=== PATIENT | female | born 1965 | race Caucasian/White ===

== ENCOUNTER 2019-08-31 09:25 | Outpatient (CLI) | payer OTHER, SELFPAY ==
--- NOTE | ~2019-08-31 | MM_ITS ---
EXAMINATION: MM screening naz BI w mai HISTORY: Screening mammogram TECHNIQUE: Craniocaudal and mediolateral oblique 3-D tomosynthesis images were obtained and synthetic 2-D images were generated. CAD analysis was submitted and interpreted. COMPARISON: 04/08/2011 BREAST PARENCHYMAL COMPOSITION: The breasts are heterogenously dense, which may obscure small masses FINDINGS: There are focal asymmetries in the central aspect of the left breast, not definitely seen o n prior examination. The right breast is stable without evidence for malignancy. IMPRESSION: 1. Focal left breast asymmetries centrally. 2. Additional mammographic views and possible breast ultrasound are recommended. BI-RADS Category 0: Incomplete: Needs additional imaging evaluation. Reviewed, dictated and finalized at location A. IMPRESSION: 1. Focal left breast asymmetries centrally. 2. Additional mammographic views and possible breast ultrasound are recommended . BI-RADS Category 0: Incomplete: Needs additional imaging evaluation.
== END 2019-08-31 09:26 | disposition home or self-care (01) ==
LOC: ANHIMG 09:28
PROVIDERS: PCP Family Medicine; Visit Provider Family Medicine
DX: Z12.31 Encounter for screening mammogram for malignant neoplasm of breast (principal); R92.8 Other abnormal and inconclusive findings on diagnostic imaging of breast
CPT/HCPCS: 77063; 77067

== ENCOUNTER 2019-09-15 11:37 | Outpatient (CLI) | payer OTHER, SELFPAY ==
--- NOTE | ~2019-09-15 | MM_ITS ---
EXAMINATION: MM diagnostic mammo unilat LT HISTORY: TECHNIQUE: Additional full field 3-D ML and spot ML, MLO and cc tomosynthesis images of the left [address] were performed and synthetic 2-D images were generated. Rolled medial and rolled lateral craniocau ton views. CAD analysis was submitted and interpreted. COMPARISON: 08/31/2019 bilateral digital screening mammogram To diagnostic left digital mammogram 04/08/2011 bilateral digital screening mammogram FINDINGS: No reproducible mass, architectural distortion, malignant calcification, skin thickening or retraction is detected. IMPRESSION: 1. No mammographic evidence of malignancy 2. Routine mammographic screening is recommended BI-RADS Category 1: Negative Reviewed, dictated and finalized at location A.
== END 2019-09-15 11:38 | disposition home or self-care (01) ==
LOC: ANHIMG 11:38
PROVIDERS: PCP Family Medicine; Visit Provider Family Medicine
DX: R92.8 Other abnormal and inconclusive findings on diagnostic imaging of breast (principal)
CPT/HCPCS: 77065

== ENCOUNTER 2021-01-22 08:53 | Outpatient (CLI) | payer OTHER, SELFPAY ==
--- NOTE | ~2021-01-22 | MM_ITS ---
EXAMINATION: MM screening naz BI w mai HISTORY: Screening TECHNIQUE: Craniocaudal and mediolateral oblique 3-D tomosynthesis images were obtained and synthetic 2-D images were generated. CAD analysis was submitted and interpreted. COMPARISON: Comparison to multiple prior studies sequentially, with oldest reviewed study dated 04/08. BREAST PARENCHYMAL COMPOSITION: The breasts are heterogeneously dense, which may obscure small masses . FINDINGS: There is no evidence of suspicious mass, calcification, or architectural distortion to sugg est malignancy in either breast. There has been no suspicious interval change. IMPRESSION: 1. No mammographic evidence of malignancy. 2. Recommend routine screening mammography in one year. BI-RADS Category 1: Negative Reviewed, dictated and finalized at location A.
== END 2021-01-22 08:54 | disposition home or self-care (01) ==
LOC: ANHIMG 08:54
PROVIDERS: PCP Family Medicine; Visit Provider Family Medicine
DX: Z12.31 Encounter for screening mammogram for malignant neoplasm of breast (principal)
CPT/HCPCS: 77063; 77067

== ENCOUNTER 2021-03-07 08:56 | Outpatient (CLI) | payer OTHER, SELFPAY ==
--- NOTE | ~2021-03-07 | DEXA_ITS ---
Bone Density Report Name: LILY HAZEL Age: 55 Sex: Female Ethnicity: White Date of : 1965 Indication: postmenopausal; height loss; hysterectomy; Referring Provider: ARTUR BLAS Study: Bone densitometry was performed. Exam Date: March 07, 2021 Accession number: [id number] Bone Density: Region BMD T-score Z-score Classification AP Spine (L1-L4) 0.819 -2.1 -1.1 Osteopenia Femoral Neck (Left) 0.820 -0.3 0.7 Normal Total Hip (Left) 0.913 -0.2 0.4 Normal Total Hip Bilateral Avg 0.909 -0.3 0.4 Normal Femoral Neck (Right) 0.782 -0.6 0.4 Normal Total Hip (Right) 0.905 -0.3 0.3 Normal World Health Organization criteria for BMD impression classify patients as: Normal (T-score at or above -1.0), Osteopenia (T-score between -1.0 and -2.5), or Osteoporosis (T-score at or below -2.5). 10-year Fracture Risk(1): Major Osteoporotic Fracture 4.6% Hip Fracture 0.1% Reported Risk Factors: [place] (), Neck BMD=0.782, BMI=22.0 (1) FRAX(R) Version 3.08. Fracture probability calculated for an untreated patient. Fracture probability may be lower if the patient has received treatment. Clinical Information Provided by Patient: Has the following medical conditions: Hysterectomy Patient maximum height was 69 Menopause Age: 48 Onset of menses at age 15 Number of children 2 Impression: The patient has low bone mass, based on the Total Spine T-score. The patient has an estimated ten-year risk of hip fracture of 0.1% and an estimated ten-year risk of major fracture of 4.6%, based on the WHO FRAX algorithm. Discussion: BONE DENSITY IS LOW AT ONE OR MORE SKELETAL SITES. This patient's lowest T-score is low at one or more skeletal sites. It meets the World Health Organization's (WHO) criteria for ?low bone mass? (T-score between -1.0 and -2.5). The patient's 10-year risk of fracture as calculated by FRAX is less than the threshold where pharmacological therapy is recommended by the National Osteoporosis Foundation (NOF). However, all treatment decisions require clinical judgment and consideration of individual patient factors, including patient preferences, comorbidities, previous drug use, risk factors not captured in the FRAX model (e.g., frailty, falls, vitamin D deficiency, increased bone turnover, interval significant decline in bone density) and possible under or overestimation of fracture risk by FRAX. The patient should follow a healthful lifestyle (good nutrition with adequate calcium and vitamin D, and appropriate weight-bearing exercise). Follow-Up: Consider repeating this study in 2 to 3 years to reassess this patient's status, or sooner if there is some new clinical indication. Reported by: CRISTO on 03/07/2021 9:20:00 AM. Reviewed, dictated an
== END 2021-03-07 08:57 | disposition home or self-care (01) ==
LOC: ANHIMG 08:57
PROVIDERS: PCP Family Medicine; Visit Provider Family Medicine
DX: Z00.00 Encounter for general adult medical examination without abnormal findings (principal); Z78.0 Asymptomatic menopausal state; M85.88 Other specified disorders of bone density and structure, other site
CPT/HCPCS: 77080

== ENCOUNTER 2021-03-13 09:21 | Outpatient (CLI) | payer OTHER, SELFPAY ==
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
== END 2021-03-13 09:22 | disposition home or self-care (01) ==
LOC: ANHIMG 09:24
PROVIDERS: PCP Family Medicine; Visit Provider Physician Assistant Medical
DX: M25.562 Pain in left knee (principal)
CPT/HCPCS: 73564

== ENCOUNTER 2021-11-11 00:05 | Day surgery (SDC) | payer OTHER, SELFPAY ==
[2021-10-29 13:31] VITALS: BMI 20.7
--- NOTE | 2021-11-08 14:29 | PM.HPGS ---
History of Present Illness History of Present Illness Consent: Risks, benefits, and alternatives have been discussed and questions answered. Patient agrees to proceed with procedure. Chief complaint: neoplasm screening Narrative: Julisa Frank is a 56 year old female referred for colon cancer screening. Review of Systems Review of Systems: All systems reviewed & are unremarkable except as noted in HPI and below PMFSH Past Medical History Medical History Hair loss Inattention Neoplasm of uncertain behavior of skin Palpitations Patellofemoral disorders, left knee Surgical menopause Yeast vaginitis Surgical History Surgical History Hx of hysterectomy Family History Family History Mother Family history of mental disorder Family history of bipolar disorder Father Family history of elevated blood lipids Acute myocardial infarction, Onset Age: 65 Other Depression Family history of cardiovascular disease Family history of glaucoma Family history of osteoporosis Social History Social History Smoking status: Former smoker Tobacco type: cigarettes Second hand tobacco smoke exposure: No Alcohol intake: never Substance use: current Substance use type: marijuana Other substance usage details: vape- 5 times a month to help sleep Living arrangements: with friend(s) Gender identity (if verbalized by the patient): Female Spiritual care concerns: No Agree to blood products: Yes Meds Home Medications and Allergies Home Medications Medication Instructions Recorded Confirmed Type cetirizine 10 mg tablet (Zyrtec) 10 mg PO DAILY 09/27/19 11/11/21 History estradiol 0.5 mg tablet See Rx Instructions .Route 10/24/20 11/11/21 Rx .COMPLEX #90 tabs dextroamphetamine-amphetamine ER 10 mg PO QAM #30 caps 09/11/21 11/11/21 Rx 10 mg 24hr capsule,extend release (Adderall XR) ibuprofen 800 mg tablet 800 mg PO TID 10/29/21 11/11/21 History zolpidem 10 mg tablet 10 mg PO QHS PRN insomnia #30 tabs 11/06/21 11/11/21 Rx Allergies Allergy/AdvReac Type Severity Reaction Status Date / Time No Known Allergies Allergy Verified 11/11/21 07:17 Exam Const: General: alert Orientation/consciousness: patient oriented x3 Resp: Auscultation: clear to auscultation bilaterally Cardio: Rhythm: regular rhythm GI: GI Palp: Yes Soft to palpation and No Tenderness to palpation present (GI) Neuro: General: patient oriented x3 Assessment and Plan Assessment and plan (1) Colon cancer screening: Code(s): Z12.11 - Encounter for screening for malignant neoplasm of colon Status: Acute Assessment and Plan: Colonoscopy with possible biopsy or polypectomy or cautery or injection of substances.
[2021-11-11 07:19] VITALS: BP 94/67; PULSE 65; RESP 16; TEMP 36.3; O2SAT 100
[2021-11-11] MEDS: LACTATED RINGERS 1,000 ML 150 ML IV CONT (07:22)
--- NOTE | 2021-11-11 08:14 | WPDANESEPPF ---
Anes - Initial Pre Proc Eval Procedure: Operation Date: 11/11/21 08:30 Proposed Procedures p Screening Colonoscopy - Andry Oquendo MD Date/Time: 11/11/21 08:14 Surgeon: Andry Oquendo MD Pre Op Diagnosis: neoplasm screening Patient Data Age: 56 Gender: F Height: 1.75 m Weight: 62.6 kg Last Vital Signs Temp 97.4 F L 11/11/21 07:19 Pulse 65 11/11/21 07:19 Resp 16 11/11/21 07:19 BP 94/67 L 11/11/21 07:19 Pulse Ox 100 11/11/21 07:19 O2 Del Method Room Air 11/11/21 07:19 Allergies Allergy/AdvReac Type Severity Reaction Status Date / Time No Known Allergies Allergy Verified 11/11/21 07:17 Home Medications Medication Instructions Recorded Confirmed Type cetirizine 10 mg tablet (Zyrtec) 10 mg PO DAILY 09/27/19 11/11/21 History estradiol 0.5 mg tablet See Rx Instructions .Route 10/24/20 11/11/21 Rx .COMPLEX #90 tabs dextroamphetamine-amphetamine ER 10 mg PO QAM #30 caps 09/11/21 11/11/21 Rx 10 mg 24hr capsule,extend release (Adderall XR) ibuprofen 800 mg tablet 800 mg PO TID 10/29/21 11/11/21 History zolpidem 10 mg tablet 10 mg PO QHS PRN insomnia #30 tabs 11/06/21 11/11/21 Rx Patient hx anesthesia problems: none Family hx anesthesia problems: none Results Review: All pre-operative results and documents have been reviewed as part of the pre-operative evaluation. [facility] Past Medical History Medical History Hair loss Inattention Neoplasm of uncertain behavior of skin Palpitations Patellofemoral disorders, left knee Surgical menopause Yeast vaginitis Surgical History Surgical History Hx of hysterectomy Family History Family History Mother Family history of mental disorder Family history of bipolar disorder Father Family history of elevated blood lipids Acute myocardial infarction, Onset Age: 65 Other Depression Family history of cardiovascular disease Family history of glaucoma Family history of osteoporosis Social History Social History (Updated 09/19/21 @ 09:30 by SHAILESH Estrada) Smoking status: Former smoker Tobacco type: cigarettes Second hand tobacco smoke exposure: No Alcohol intake: never Substance use: current Substance use type: marijuana Other substance usage details: vape- 5 times a month to help sleep Living arrangements: with friend(s) Gender identity (if verbalized by the patient): Female Spiritual care concerns: No Agree to blood products: Yes Anes - Eval Final PreProcedure Day of Procedure 11/11/21 08:14 Patient weight: normal Heart: regular rate and rhythm Lungs: clear to auscultation Airway: Mallampati scale class II Neurological: alert and oriented Last oral intake: >/= 8 hours ASA classification: II Emergent: no Anesthetic plan: proceed Anesthesia type and monitoring: general GIVS and standard monitoring Results Review: All pre-operative results and documents have been reviewed as part of the pre-operative evaluation. Informed Consent: The patient's anesthetic plan and its attendant risks and benefits were discussed with the patient/family/POA. Questions were solicited and answers provided to the satisfaction of the patient/family/POA.
[2021-11-11 08:47] VITALS: BP 89/44; PULSE 65; RESP 16; O2SAT 100
[2021-11-11 08:57] VITALS: BP 86/50; PULSE 68; RESP 17; O2SAT 100
[2021-11-11 09:07] VITALS: BP 95/57; PULSE 62; RESP 15; O2SAT 100
== END 2021-11-11 09:15 | disposition home or self-care (01) ==
PROVIDERS: PCP Family Medicine; Visit Provider Internal Medicine Gastroenterology
PROC: 0DJD8ZZ Inspection of Lower Intestinal Tract, Via Natural or Artificial Opening Endoscopic (ICD-10-PCS; CPT 45378; principal; 2021-11-11 08:30)
DX: Z12.11 Encounter for screening for malignant neoplasm of colon (principal); K57.30 Diverticulosis of large intestine without perforation or abscess without bleeding; Z87.891 Personal history of nicotine dependence; F12.90 Cannabis use, unspecified, uncomplicated
CPT/HCPCS: 45378; J2704; J7120

== ENCOUNTER 2021-12-17 08:00 | Outpatient (RCR) | payer OTHER, SELFPAY ==
--- NOTE | 2021-09-25 09:32 | PTOPEVAL ---
PHYSICAL THERAPY EVALUATION AND PLAN OF CARE Thank you for referring Julisa Frank to [facility].? The patient is scheduled to be seen for therapy? 1-2x/week for 6 weeks. Please review, sign, date and return this plan of care CIARA. I agree with and certify that the following plan of care is medically necessary. Referring Physician Date Attending Provider: Sena Boone Diagnosis lisfranc dislocation right foot Onset 12 weeks ago Subjective Information States that she continues to Query Text:As Reported By Patient/ have pain and hurts to walk Family and her foot and ankles feel weak. The ball of her foot does not tolerate pressure. She was casted for 7 weeks, boot for 1 weeks. Full weight bearing in shows starting week 10. Reported Pain Level 0 Pain Score Pain Score 0: Self Report Additional Pain Score Comments states she has pain when she puts weight on the foot and tries to walk Interventions Used Interventions Used By Clinicians Exercise,Joint Mobilization Pain Relief Interventions Used By Ice Patient Other Alleviating Interventions AROM Lower Extremity Range of Motion Ankle/Foot Range of Motion Right Ankle Dorsiflexion With Knee Extension 12 Range of Motion - Active Ankle Plantarflexion Range of Motion - 60 Active Query Text: Ankle Eversion Range of Motion - Active 18 Ankle Inversion Range of Motion - Active 30 Lower Extremity Muscle Strength Testing Ankle Strength Right Ankle Dorsiflexion Strength 5 Normal Ankle Plantarflexion Strength 4- Good - Ankle Eversion Strength 4+ Good + Ankle Inversion Strength 5 Normal Toe Strength Comments intrinsics: 3/5 great toe extension: 3-/5, poor motor control to isolate EHL Palpation decreased mobility of navicular-cuneiform joints Gait Assessment Gait Pattern Antalgic Gait Other Gait Observations no right toe off with limited weight bearing to right forefoot; PT Clinical Summary Julisa is a 56 yo female presenting to outpatient physical therapy 12 weeks s/p lisfranc fractures of right foot. She presents today with decreased strength and motor
--- NOTE | 2021-10-08 09:15 | PCPTNOTE ---
WEB APPLICATION TESTER student Chuy Moctezuma performed treatment and documentation under supervision.
--- NOTE | 2021-10-22 11:50 | PCPTNOTE ---
On 10/22/21, the student,Chuy Moctezuam, provided care and completed [facility] documentation on this patient. I have reviewed the student's documentation and agree with the findings.
--- NOTE | 2021-11-07 09:50 | PTOPEVAL ---
PHYSICAL THERAPY PROGRESS REPORT Thank you for referring Julisa Frank to [facility].? The patient is scheduled to be seen for therapy? 1x/week for 8 weeks. Please review, sign, date and return this plan of care CIARA. I agree with and certify that the following plan of care is medically necessary. Referring Physician Date Attending Provider: Sena Boone Diagnosis lisfranc dislocation right foot Onset 12 weeks ago Subjective Information States that she is doing well. Query Text:As Reported By Patient/ She has notes some Family improvement but not cured yet. she is very understanding that this is a long recovery. She was d/c'd from her doctor at 16 weeks post injury and she is currently at 18.5 wks post injury Right Foot/Feet Reported Pain Level 3 Pain Score Pain Score 3: Self Report Interventions Used Interventions Used By Clinicians Education,Exercise,Ice,Rest, Standing Pain Relief Interventions Used By Ice Patient Other Alleviating Interventions AROM Lower Extremity Range of Motion Ankle/Foot Range of Motion Right Ankle Dorsiflexion With Knee Extension 15 Range of Motion - Active Ankle Plantarflexion Range of Motion - 65 Active Query Text: Ankle Eversion Range of Motion - Active 21 Ankle Inversion Range of Motion - Active 40 Lower Extremity Muscle Strength Testing Hip Strength Right Hip Flexion Strength 4+ Good + Hip Extension Strength 4- Good - Hip Abduction Strength 3+ Fair + Hip Strength Comments single leg sit to stand: knee collapses into valgus and right hip drpos Ankle Strength Right Ankle Dorsiflexion Strength 5 Normal Ankle Plantarflexion Strength 5 Normal Ankle Eversion Strength 4+ Good + Ankle Inversion Strength 5 Normal Toe Strength Comments intrinsics: 4/5 great toe extension: 4/5, Balance Assessment 5 Time Sit to Stand Time in Seconds 12.5 Gait Assessment 2 Minute Walk Total Distance Walked (feet) 376 2 Minute Walk Gait Speed Score (feet/ 3.13 second) PT Clinical Summary Julisa is a 56 yo female presenting to outpatient physical therapy 18 weeks s/p lisfranc fractures of right foot. She participated in physical therapy for 6 weeks
--- NOTE | 2021-12-17 15:27 | PCPTNOTE ---
This treatment is being continued on visit number [id number]. Please see documentation on both accounts to view progress. Completed interventions, outcomes, and problems have been marked as Inactive to facilitate the copying of the Care plan routine for recurring accounts.
== END 2021-12-17 11:37 | disposition home or self-care (01) ==
LOC: ANHGOSHPT 08:00
PROVIDERS: PCP Family Medicine
DX: S93.324D Dislocation of tarsometatarsal joint of right foot, subsequent encounter (principal)
CPT/HCPCS: 97110; 97112; 97140; 97162; 97530

== ENCOUNTER 2022-01-07 12:30 | Outpatient (RCR) | payer OTHER, SELFPAY ==
--- NOTE | 2021-12-17 15:28 | PCPTNOTE ---
The treatment documented on this account is a continuation of the treatment documented on visit number [id number]. Please see documentation on both accounts to view progress. The Plan of Care has been transitioned and updated within the new V#. I have addressed and agree with the discipline specific Problems, Interventions, and Goals for the current certification period. Completed interventions, outcomes, and problems have been marked as Inactive to facilitate the copying of the Care plan routine for recurring accounts.
--- NOTE | 2022-01-07 13:54 | PTOPPROG ---
Assessment and note entered by Gita Medina, PT, DPT Evaluation Information Assessment Status Progress Diagnosis Lisfranc dislocation Subjective Information Pt states she is doing okay, but not great. She states her strength is gradually returning, but not as great at shed like. She states she still feels pain with every step. She states it is hard to walk without a limp. Pt states she has 60% return to her baseline function. Assessment PT Clinical Summary Julisa presents to therapy today for her progress report following 16 visits of therapy to treat her diagnosis of a Lisfranc dislocation. She demonstrates equal ankle ROM and interjoint mobility. She demonstrates improving ankle strength but is slightly limited from her uninvolved side, she can demonstrate 2 full range, single heel raises on the R. Her current biggest limitation is her R hip abduction strength, these is a factor in her remaining gait deviations. Continuation of skilled physical therapy services are indicated to monitor the progress of her hip strength. She is to continue with her HEP and follow up in one month. Plan of Care Interventions Gait Training,Hot Pack/Cold Pack,Manual Therapy, Neuro Re-education,Patient/Caregiver Educati, Therapeutic Activities,Therapeutic Exercise PT Services Indicated Yes Treatment Frequency and follow up in one month Duration These treatments will address the objective and functional deficits as defined above. The patient will be advanced safely and appropriately in order for the patient to progress towards his/her prior level of function. Additional exercises will be introduced and as well as a comprehensive home exercise program upon discharge, if needed, ?to ensure carryover of functional gains achieved in the clinic. This treatment plan has been reviewed and agreement upon by the patient.
--- NOTE | 2022-02-12 13:36 | PCPTNOTE ---
Patient called & cancelled scheduled appointment this date, no reason given.
--- NOTE | 2022-02-20 10:03 | PTOPDC ---
Assessment and note entered by Gita Medina, PT, DPT Evaluation Information Assessment Status Discharge - Pt Not Present Diagnosis Lisfranc dislocation Subjective Information Called and followed up with patient as she cancelled her re-evaluation. She states her foot is slowly getting better and she can be done with therapy for now. Assessment PT Clinical Summary Julisa has completed 17 visits of skilled therapy from 09/25/21 to 01/07/22. She will be discharged at this time. If she is to return to therapy at a later date, she will need a new order. Plan of Care Treatment Frequency and to be discharged Duration
== END 2022-02-21 10:51 | disposition home or self-care (01) ==
LOC: ANHGOSHPT 12:30
PROVIDERS: PCP Family Medicine
DX: S93.324D Dislocation of tarsometatarsal joint of right foot, subsequent encounter (principal)
CPT/HCPCS: 97110; 97112; 97116; 97140; 97530

== ENCOUNTER 2023-01-14 11:29 | Outpatient (CLI) | payer OTHER, SELFPAY ==
[2023-01-14 13:45] LABS: Basophils Percent Auto 0.8 % (0.2-1.2); Eosinophils Absolute Auto 0.1 K/mm3 (0-0.3); Hematocrit 42.4 % (37.0-47.0); Hemoglobin 13.5 g/dL (12.0-15.0); Immature Platelet Fraction Pct 9.8 % (0.9-11.2); Lymphocytes Absolute Auto 1.59 K/mm3 (0.9-3.2); Lymphocytes Percent Auto 31.1 % (18.3-44.2); Mean Corpuscular HGB Conc 31.8 g/dl (32-36); Mean Corpuscular Hemoglobin 30.1 pg (26-34); Mean Corpuscular Volume 94.4 fl (80-100); Mean Platelet Volume 11.3 fl (7.4-10.4); Monocytes Absolute Auto 0.4 K/mm3 (0.1-0.6); Monocytes Percent Auto 8.2 % (2.6-8.5); Neutrophils Percent Auto 57.9 % (45.5-73.1); Platelet Count Result 151 k/mm3 (150-375); Red Blood Count 4.49 M/mm3 (4.2-5.4); Red Cell Distribution Width 13.8 % (11.5-14.5); White Blood Count 5.1 K/mm3 (4.5-10.0)
[2023-01-14 13:51] LABS: Prothrombin Time 13.4 Seconds (11.1-14.7)
[2023-01-14 13:52] LABS: Partial Thromboplastin Time 24.4 SECONDS (22.3-36.8)
[2023-01-14 13:53] LABS: Alanine Aminotransferase 18 U/L (6-35); Alkaline Phosphatase 66 U/L (38-126); Anion Gap 8 mmol/L (8-16); Aspartate Amino Transferase 35 U/L (14-36); Bilirubin,Total 0.8 mg/dL (0.2-1.3); Blood Urea Nitrogen 11 mg/dL (7-17); Calcium 10.1 mg/dL (8.4-10.2); Carbon Dioxide 29 mmol/L (22-30); Chloride 102 mmol/L (98-107); Cholesterol 202 mg/dL (0-200); Estimated Glomerular Filt Rate > 60; Glucose 92 mg/dL (65-110); HDL Direct 66 mg/dL; Potassium 3.7 mmol/L (3.4-5.0); Sodium 139 mmol/L (137-145); Triglycerides 50 mg/dL (<150)
[2023-01-14 14:04] LABS: LDL Cholesterol Direct 104 mg/dL
[2023-01-14 14:23] LABS: Thyroid Stimulating Hormone 0.038 uIU/mL (0.465-4.680)
[2023-01-18 13:52] LABS: Lupus dRVVT Screen 29 sec (<=45); PTT-LA Screen 30 sec (<=40)
[2023-02-11 08:05] LABS: Antithrombin III Activity 120 % normal (80-135); Factor V Leiden Mutation NEGATIVE; Protein S Antigen, Free 80 % normal (50-147)
== END 2023-01-14 11:30 | disposition home or self-care (01) ==
LOC: ANHGOSHLAB 11:31
PROVIDERS: PCP Family Medicine; Visit Provider Family Medicine
DX: Z00.00 Encounter for general adult medical examination without abnormal findings (principal); Z78.0 Asymptomatic menopausal state; Z83.2 Family history of diseases of the blood and blood-forming organs and certain disorders involving the immune mechanism
CPT/HCPCS: 36415; 80053; 80061; 81240; 81241; 82306; 84443; 85025; 85055; 85301; 85303; 85306; 85610; 85613; 85730

== ENCOUNTER 2023-01-28 13:37 | Outpatient (CLI) | payer OTHER, SELFPAY ==
--- NOTE | ~2023-01-28 | XR_ITS ---
EXAMINATION: XR hand RT min 3V DATE: 01/28/2023 13:47 INDICATION: Pain in the proximal right thumb. TECHNIQUE: 3 views of right hand were obtained. COMPARISON: None. FINDINGS: Bone alignment is normal. No fracture. There is mild osteoarthritis of first carpometacarpa l joint and second distal interphalangeal joint. IMPRESSION: 1. Mild polyarticular osteoarthritis. Reviewed, dictated and finalized at location E. E WIRER
== END 2023-01-28 13:38 | disposition home or self-care (01) ==
LOC: ANHIMG 13:38
PROVIDERS: PCP Family Medicine; Visit Provider Family Medicine
DX: M19.041 Primary osteoarthritis, right hand (principal)
CPT/HCPCS: 73130

== ENCOUNTER 2023-01-28 13:54 | Outpatient (RCR) | payer OTHER, SELFPAY ==
--- NOTE | 2023-01-28 15:06 | OTOPEVAL1 ---
Assessment and note entered by Alexis Gerard, KOKIR/Essie, CHT Evaluation Information Diagnosis Right thumb pain Subjective Information Patient reports experiencing issues with her right thumb for years . First started noticing she wasn't able to pick stuff up normally, feeling like the thumb was not stable, always having to use her other hand to support items so she didn't drop them. It finally got to the point where it became painful and now she is seeking treatment. Assessment OT Clinical Summary Patient referred to outpatient hand therapy with right thumb pain. Functional assessment demonstrates some atrophy of the 1st web space compared to the right hand. With lifting and pinching the thumb MCP joint appears to drift radially, however the ulnar collateral ligament of the MCP joint is intact. Recommending a thumb spica brace to support the MCP joint, gentle last chalker and pinch strengthening, and education on joint protection -- avoiding tasks that cause lateral stress to the MCP joint. Continued skilled OT indicated for education, HEP instruction, modalities, and orthotic fitting/education with the goal of improving functional use and stability of the right thumb. Plan of Care Interventions Therapeutic Exercise,Manual Therapy,Therapeutic Activities,Check Out for Orthotic/Pr,Paraffin OT Services Indicated Yes Treatment Frequency and 1x/week for 4 weeks Duration These treatments will address the objective and functional deficits as defined above. The patient will be advanced safely and appropriately in order for the patient to progress towards his/her prior level of function. Additional exercises will be introduced and as well as a comprehensive home exercise program upon discharge, if needed, ?to ensure carryover of functional gains achieved in the clinic. This treatment plan has been reviewed and agreement upon by the patient.
--- NOTE | 2023-02-05 09:17 | OTOPDC ---
Assessment and note entered by Alexis Gerard, OTR/L, CHT Discharge Notification 02/05/23 OT Clinical Summary Patient called and cancelled all of her scheduled appointments and requests discharge from therapy due to a specialist stating not do to therapy right now . She attended the initial evaluation and no follow up appointments. Please refer to the evaluation report, dated 01/28/23, for OT assessment summary. Discharging with goals not addressed.
== END 2023-02-05 10:13 | disposition home or self-care (01) ==
LOC: ANHOT 13:54
PROVIDERS: PCP Family Medicine; Visit Provider Family Medicine
DX: M79.644 Pain in right finger(s) (principal)
CPT/HCPCS: 73130; 97110; 97165

== ENCOUNTER 2023-06-29 14:28 | Outpatient (CLI) | payer OTHER, SELFPAY ==
--- NOTE | ~2023-06-29 | MM_ITS ---
EXAMINATION: MM screening naz BI w mai HISTORY: Screening mammogram TECHNIQUE: Craniocaudal and mediolateral oblique 3-D tomosynthesis images were obtained and synthetic 2-D images were generated. CAD analysis was submitted and interpreted. COMPARISON: 01/22/2021 bilateral screening mammogram examination BREAST PARENCHYMAL COMPOSITION: The breasts are heterogeneously dense, which may obscure small masses . FINDINGS: There is no evidence of suspicious mass, calcification, or architectural distortion to sugg est malignancy in either breast. There has been no suspicious interval change. IMPRESSION: 1. No mammographic evidence of malignancy. 2. Recommend routine screening mammography in one year. BI-RADS Category 1: Negative Reviewed, dictated and finalized at location B.
== END 2023-06-29 14:29 | disposition home or self-care (01) ==
LOC: ANHIMG 14:29
PROVIDERS: PCP Family Medicine; Visit Provider Family Medicine
DX: Z12.31 Encounter for screening mammogram for malignant neoplasm of breast (principal)
CPT/HCPCS: 77063; 77067

== ENCOUNTER 2024-09-01 08:26 | Outpatient (CLI) | payer OTHER, SELFPAY ==
--- NOTE | ~2024-09-01 | MM_ITS ---
EXAMINATION: MM screening naz BI w mai HISTORY: Screening TECHNIQUE: Craniocaudal and mediolateral oblique 3-D tomosynthesis images were obtained and synthetic 2-D images were generated. CAD analysis was submitted and interpreted. COMPARISON: Comparison to multiple prior studies sequentially, with oldest reviewed study dated 08/30. BREAST PARENCHYMAL COMPOSITION: Dense: The breasts are heterogeneously dense, which may obscure small masses FINDINGS: There is no evidence of suspicious mass, calcification, or architectural distortion to sugg est malignancy in either breast. There has been no suspicious interval change. IMPRESSION: 1. No mammographic evidence of malignancy. 2. Recommend routine screening mammography in one year. BI-RADS Category 1: Negative Reviewed, dictated and finalized at location []
--- OUTSIDE RECORDS SUMMARY | 2024-09-01 08:38 | XMS_ITS | Clinical Summary ---
Author Organization [facility] Address [address] [place] [address] Care Team Providers Care Furnace Mechanic Name Role Phone Kristen Lakhani MD Primary Care Provider + Allergies No known active allergies Medications estradioL (ESTRACE) 0.5 mg tablet 06/29/2021 Active dextroamphetami ne-amphetamine XR (ADDERALL XR) 10 mg 24 hr capsule TAKE 1 CAPSULE BY MOUTH IN THE MORNING...MA Y 06/04/2021 Active zolpidem (AMBIEN) 10 mg tablet Take 10 mg by mouth nightly as needed 06/05/2021 Active cetirizine (ZyrTEC) 10 mg tablet Take 10 mg by mouth daily Active Active Problems No known active problems Social History Tobacco Use Types Packs/Day Years Used Date Smoking Tobacco: Never Personal Safety Answer Date Recorded Getting School Help Needed Not on file 06/05 Comments Unknown Sex and Gender Information Value Date Recorded Sex Assigned at Not on file 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 Gender Identity Not on file Sexual Orientation Not on file Obstetrics History Last Filed Vital Signs Vital Sign Reading Time Taken Comments Blood Pressure - - Pulse - - Temperature - - Respiratory Rate - - Oxygen Saturation - - Inhaled Oxygen Concentration - - Weight 63.5 kg (140 lb) 08/22/2021 11:05 AM CDT Height 172.7 cm (5' 8) 08/22/2021 11:05 AM CDT Body Mass Index 21.29 08/22/2021 11:05 AM CDT Plan of Treatment Health Maintenance Due Date Last Done Comments Breast Cancer Screening-Mammogram 1967 Cervical Cancer Screening 1967 Colon Cancer Screening-Colonoscopy 1967 Depression Screening 1967 Hepatitis C Screening 1967 Hepatitis B Screening 08/19/1985 Regular Well Visit/Exam 18-64 08/19/1985 Zoster Vaccine (1 of 2) 08/19/2017 Covid-19 Vaccine (4 - 2023-2 5 season) 2023 03/12/2021, 06/16/2020, 05/24/2020 Influenza Vaccine (Season Ended) 2024 DTaP/Tdap/Td Vaccine (2 - Td or Tdap) 06/29/2028 06/29/2018 Pneumococcal vaccine <65 Aged Out No longer eligible based on patient's age to complete this topic Insurance [facility] Care Teams Furnace Mechanic Relationship Specialty Start Date End Date Kristen Lakhani MD PCP - General Family Medicine 07/03/21
--- OUTSIDE RECORDS SUMMARY | 2024-09-01 08:38 | XMS_ITS | Referral Summary ---
Author Organization 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
== END 2024-09-01 08:27 | disposition home or self-care (01) ==
LOC: ANHIMG 08:28
PROVIDERS: PCP Family Medicine; Visit Provider Family Medicine
DX: Z12.31 Encounter for screening mammogram for malignant neoplasm of breast (principal)
CPT/HCPCS: 77063; 77067